=== PATIENT | male | born 1970 | race Caucasian/White ===

== ENCOUNTER → 2018-10-08 | Outpatient (CLI) | payer OTHER | LOC: FIMAGING 15:19 | PROVIDERS: ATTEND Family Medicine Sports Medicine | DX: M51.37 Other intervertebral disc degeneration, lumbosacral region (principal) ==

== ENCOUNTER → 2018-10-16 | Outpatient (CLI) | payer OTHER | LOC: FIMAGING 19:12 | PROVIDERS: ATTEND Family Medicine Sports Medicine | DX: M51.37 Other intervertebral disc degeneration, lumbosacral region (principal); M54.16 Radiculopathy, lumbar region ==

== ENCOUNTER → 2018-11-14 | Day surgery (SDC) | payer OTHER ==
[~2018-11-14] MED LIST: IOPAMIDOL (ISOVUE-M 300) 15 ML VIAL ONE; LIDO/EPI 1% **for epidural** 30 ML SDV ONE; LIDOCAINE 1% 2 ML INJ ONE; TRIAMCINOLONE ACETONIDE 40 MG/ML VIAL ONE
== END | disposition home or self-care (01) ==
LOC: FIMAGING 14:12
PROVIDERS: ATTEND Radiology Diagnostic Radiology
DX: M51.16 Intervertebral disc disorders with radiculopathy, lumbar region (principal)
CPT/HCPCS: J3301; Q9967